=== PATIENT | female | born 1950 | race Native Hawaiian/Other Pacific Islander ===

== ENCOUNTER 2019-12-06 00:23 | Inpatient (IN) | payer OTHER, MEDICAID ==
[~2019-12-06] VITALS: Ht 154.9 cm; Wt 67.5 kg
[2019-12-06 03:05] LABS: Hemoglobin 14.5 g/dL (12.2-16.2)
[2019-12-06 03:07] LABS: Hematocrit 41.5 % (36.0-46.0); Mean Corpuscular Hemoglobin 31.6 pg (28.0-32.0); Mean Corpuscular Volume 90.3 fL (80.0-100.0); Platelet Count (auto) 447 10^3/uL (140-450); Red Blood Cells 4.59 10^6/uL (4.0-5.20); Red Cell Distribution Width 13.4 % (11.8-14.3); White Blood Cell 16.1 10^3/uL (4.4-10.8)
[2019-12-06 03:22] LABS: Albumin 3.2 g/dL (3.4-5.0); Basophils % (manual) 0 (0.0-2.0); Blast Cells 0; Calcium 8.7 mg/dL (8.5-10.1); Eosinophils % (manual) 0 (0-7); Metamyelocytes % 0; Myelocytes % 0; Promyelocytes % 0; Reactive Lymphocytes 0
[2019-12-06 03:28] LABS: Total Protein 8.4 g/dL (6.4-8.2)
[2019-12-06 03:37] LABS: Potassium 2.9 mmol/L (3.5-5.1)
[2019-12-06 03:46] LABS: Partial Thromboplastin Time 25.6 sec (23.0-31.2)
[2019-12-06 04:17] LABS: Band Neutrophils % (manual) 1; Lymphocytes % (manual) 7 (10.0-50.0); Monocytes % (manual) 3 (0-12)
[2019-12-06] MEDS ORDERED: DOXYCYCLINE 100MG/250ML 250 ML IV ONE (05:45)
[2019-12-06] MEDS ORDERED: DexAMETHasone SOD PHOS 10MG/1ML VIAL INJ IV ONE (05:45)
[2019-12-06] MEDS ORDERED: SODIUM CHLORIDE 0.9% 1,000 ML IV ONE (06:00)
[2019-12-06] MEDS ORDERED: IOHEXOL 350 MG/ML 100ML IJ ONE (06:08)
[2019-12-06] MEDS ORDERED: MORPHINE SULFATE 4 MG/ML SYR/VIAL IV PRN (06:30)
[2019-12-06] MEDS ORDERED: NITROGLYCERIN 0.4 MG SL TAB SL PRN (06:30)
[2019-12-06] MEDS ORDERED: MORPHINE SULF INJ 2 MG/ML SYRINGE 1ML IV PRN (06:30)
[2019-12-06] MEDS ORDERED: METOPROLOL TARTRATE 1MG/1ML-5ML VIAL IV PRN (06:30)
[2019-12-06] MEDS ORDERED: DEXTROSE (50%) 50ML SYRG IV PRN (06:30)
[2019-12-06] MEDS ORDERED: ACETAMINOPHEN 500 MG TAB PO PRN (06:30)
[2019-12-06] MEDS ORDERED: ONDANSETRON HCL 4 MG/2 ML VIAL IV PRN (06:30)
[2019-12-06] MEDS ORDERED: POTASSIUM EFFERVESENT TAB 25 MEQ PO ONE (06:45)
[2019-12-06 06:54] VITALS: BP 131/99
[2019-12-06] MEDS: SODIUM CHLORIDE 0.9% 1,000 ML IV SCH ×2 (07:08→20:47)
[2019-12-06] MEDS ORDERED: ACCU-CHEK COMFORT CURVE STRIP VI SCH (08:00)
[2019-12-06] MEDS ORDERED: InsuLIN REG 1unit/0.01ml Soln (100units/ml) SC SCH (08:00)
[2019-12-06 08:31] LABS: Urine Bacteria NONE SEEN /hpf (None Seen); Urine Blood Negative /uL (Negative); Urine Specific Gravity 1.014 (1.001-1.035); Urine WBC 41 /hpf (0 - 5)
[2019-12-06] MEDS: DOCUSATE SOD 100 MG CAP PO SCH (10:30)
[2019-12-06] MEDS: ASCORBIC ACID 1,000 MG TAB PO SCH (10:36)
[2019-12-06] MEDS: DOXYCYCLINE 100 MG TAB/CAP PO SCH ×2 (10:36→21:53)
[2019-12-06] MEDS: ASPirin 81 mg TAB PO SCH (10:36)
[2019-12-06] MEDS: LISINOPRIL 10 MG TAB PO SCH (10:37)
[2019-12-06] MEDS: CLOPIDOGREL BISULFATE 75 MG TAB PO SCH (10:37)
[2019-12-06] MEDS: ZINC SULFATE 220mg CAP or TAB PO SCH (10:37)
[2019-12-06] MEDS: CARVEDILOL 3.125 MG TAB PO SCH ×2 (10:37→21:53)
[2019-12-06] MEDS: ENOXAPARIN SOD 80 MG/0.8ML SYRINGE SC SCH ×2 (10:38→21:54)
[2019-12-06] MEDS ORDERED: POTASSIUM CHL 20MEQ/100ML 100 ML IV ONE (11:15)
--- NOTE | 2019-12-06 12:00 | NUR ---
Telemetry admit from ER RONNIBRAYDEN admitted to Telemetry unit no SBAR received. Patient oriented to Ladi Wise RN primary RN, unit, room, bed, and unit policies regarding patient care and visiting hours. Patient now on continuous telemetry monitoring, tele box # 7 and telemetry reading on arrival to unit is Sinus Rhythm 80 bpm. Patient placed on bedside oxygen, weighed by bedscale and encouraged to call if they need something. All questions and concerns addressed, patient verbalized understanding.
[2019-12-06] MEDS: ALBUTEROL SULF HFA 90MCG INH 200DOSE IN SCH ×2 (14:23→22:35)
[2019-12-06 16:47] VITALS: BP 117/70
[2019-12-06] MEDS: ACCU-CHEK COMFORT CURVE STRIP VI SCH ×2 (17:00→21:54)
--- NOTE | 2019-12-06 18:53 | NUR ---
CLOSING SHIFT NOTE PATIENT HAS NO S/S OF DISTRESS/SOB OR PAIN AT THIS TIME. WILL ENDORSE CARE TO AUTOMATIC NAILING MACHINE FEEDER RN.
--- NOTE | 2019-12-06 19:10 | NUR ---
Opening Shift Note Assumed care of patient. Patient is awake and alert, oriented X 1. No S/S of respiratory distress/SOB or pain noted and/or reported. Bed in lowest locked position, side rails X 3 up, call light within reach, bed alarm ON. Instructed on POC and to call for assistance PRN. Will continue to monitor for changes Q1hr and PRN.
[2019-12-06 20:00] VITALS: BP 137/74
[2019-12-06] MEDS: InsuLIN REG 1unit/0.01ml Soln (100units/ml) SC SCH ×2 (20:46→21:54)
[2019-12-06 21:42] VITALS: BP 137/74
[2019-12-06] MEDS ORDERED: ATORVASTATIN 20 MG TAB PO SCH (22:00)
[2019-12-07] VITALS (7 sets, daily range): BP systolic 99–154; BP diastolic 54–95
[2019-12-07 05:28] LABS: Basophils # (auto) 0 10 ^3/uL (0-0.2); Basophils % (auto) 0.1 % (0.0-2.0); Eosinophils # (auto) 0 10 ^3/uL (0-0.8); Hematocrit 36.7 % (36.0-46.0); Hemoglobin 12.2 g/dL (12.2-16.2); Lymphocytes # (auto) 1.2 10 ^3/uL (0.4-5.4); Lymphocytes % (auto) 8.6 % (10.0-50.0); Mean Corpuscular Hemoglobin 30.6 pg (28.0-32.0); Mean Corpuscular Hgb Conc. 33.2 g/dL (32.0-36.0); Mean Corpuscular Volume 92.1 fL (80.0-100.0); Monocytes # (auto) 0.8 10 ^3/uL (0-1.3); Monocytes % (auto) 5.3 % (0.0-12.0); Neutrophils # (auto) 12.4 10 ^3/uL (1.6-8.6); Nucleated Red Blood Cells % 0.1 %; Platelet Count (auto) 429 10^3/uL (140-450); Red Blood Cells 3.98 10^6/uL (4.0-5.20); Red Cell Distribution Width 13.2 % (11.8-14.3); White Blood Cell 14.4 10^3/uL (4.4-10.8)
[2019-12-07 05:47] LABS: Albumin 2.7 g/dL (3.4-5.0); Calcium 8.6 mg/dL (8.5-10.1); Magnesium 2.3 mg/dL (1.6-2.6); Potassium 4.1 mmol/L (3.5-5.1)
[2019-12-07 05:57] LABS: BUN/Creatinine Ratio 15.8; Bilirubin, Total 0.5 mg/dL (0.2-1.0); CRP High Sensitivity 4.49 mg/dL (< 0.3); Total Protein 7.4 g/dL (6.4-8.2)
[2019-12-07] MEDS: InsuLIN REG 1unit/0.01ml Soln (100units/ml) SC SCH ×3 (07:00→17:00)
--- NOTE | 2019-12-07 07:00 | NUR ---
OPENING SHIFT NOTE ASSUMED CARE OF PATIENT FROM MAGAZINE EDITOR RN SAHIL. PATIENT IS AWAKE, ALERT AND ORIENTED X1 (PERSON). REORIENTED PATIENT TO PLACE, TIME, AND SITUATION. PATIENT UNABLE TO COMPREHEND POC. SPOKE WITH DAUGHTER ALICE AND UPDATED HER ON POC, SHE VERBALIZED UNDERSTANDING. BED IS IN LOWEST POSITION WITH SIDE RAILS RAISED X2, BED WHEELS LOCKED, BED ALARM ON AND CALL LIGHT IS WITHIN REACH. WILL CONTINUE TO MONITOR.
[2019-12-07] MEDS: ALBUTEROL SULF HFA 90MCG INH 200DOSE IN SCH ×2 (07:08→14:49)
[2019-12-07] MEDS: ACCU-CHEK COMFORT CURVE STRIP VI SCH ×3 (07:18→17:08)
[2019-12-07] MEDS ORDERED: TICA90TA PO (07:42)
[2019-12-07] MEDS ORDERED: ATOR10TA52 PO (07:42)
[2019-12-07] MEDS ORDERED: cefTRIAXone 1GM/50ML D5W 50 ML IV SCH (09:00)
[2019-12-07] MEDS: SODIUM CHLORIDE 0.9% 1,000 ML IV SCH (09:07)
[2019-12-07] MEDS: ENOXAPARIN SOD 80 MG/0.8ML SYRINGE SC SCH (09:28)
[2019-12-07] MEDS: LISINOPRIL 10 MG TAB PO SCH (09:28)
[2019-12-07] MEDS: DOXYCYCLINE 100 MG TAB/CAP PO SCH (09:28)
[2019-12-07] MEDS: DOCUSATE SOD 100 MG CAP PO SCH (09:29)
[2019-12-07] MEDS: ASPirin 81 mg TAB PO SCH (09:29)
[2019-12-07] MEDS: CARVEDILOL 3.125 MG TAB PO SCH (09:29)
[2019-12-07] MEDS: ZINC SULFATE 220mg CAP or TAB PO SCH (09:29)
[2019-12-07] MEDS: CLOPIDOGREL BISULFATE 75 MG TAB PO SCH (09:30)
[2019-12-07] MEDS: ASCORBIC ACID 1,000 MG TAB PO SCH (09:30)
--- NOTE | 2019-12-07 11:08 | NUR ---
MD MEDELLIN AT BEDSIDE UPDATED MD ON PATIENT'S STATUS, MD IS AWARE AND ORDERED PATIENT TO BE DISCHARGED HOME WITH 2L NC. INFORMED DIRECTOR [employer] WILLETTE. KING SPOKE WITH PATIENT'S DAUGHTER.
--- NOTE | 2019-12-07 13:54 | NUR ---
RECEIVED CALL FROM FANY AND SHE IS WAITING FOR OXYGEN COMPANY TO GIVE HER ETA
--- NOTE | 2019-12-07 17:38 | NUR ---
[id number] 12/07/19 - Contacted [facility] at [phone] regarding order for home oxygen, Spoke with case work aide who inform me to send request to [employer]. Faxed to [facility] at [phone] and [employer] at [phone] face sheet, order for home oxygen, H/P. I contacted [employer] due to 2 failed fax responses given secondary fax number [phone]. Provided marketing production coordinator with patient information, computer repair technician will call unit with delivery time for portable oxygen to bedside.
--- NOTE | 2019-12-07 18:54 | NUR ---
CLOSING SHIFT NOTE PATIENT HAS NO S/S OF DISTRESS/SOB OR PAIN AT THIS TIME. WILL ENDORSE CARE TO IT ADMIN RN.
--- NOTE | 2019-12-07 19:19 | NUR ---
Opening Shift Note Assumed care of patient. Patient is awake and alert, oriented to self. No S/S of respiratory distress or pain noted and/or reported at this time. Respirations are regular and non-labored. Pt is calm and cooperative. On 1.5 LPM O2 via NC. Bed in lowest locked position, side rails X 2 up, call light within reach. Bed commode is at bed side. Instructed on POC and to call for assistance as needed. Will continue to monitor for changes Q1hr and PRN.
--- NOTE | 2019-12-07 21:26 | NUR ---
Discharged Discharge instructions given as ordered. Encourage to follow up with PCP as instructed. All questions and concerns addressed. IV removed with catheter intact, pressure dressing applied. Telemetry unit returned to ICU. Patient taken to vehicle via wheelchair accompanied by staff. No distress noted at time of departure. HR 71 bpm, RR 18 bpm, T 98.9 F, BP 130/67 mmHg.
== END 2019-12-07 21:25 | disposition home or self-care (01) | DRG 871 ==
LOC: ER 00:24 → TELE 00:25 → TELE-EAST 12:11
PROVIDERS: ADMIT Hospitalist; ATTEND Hospitalist
DX: A41.89 Other specified sepsis (principal); U07.1 COVID-19; J12.89 Other viral pneumonia; I21.A1 Myocardial infarction type 2; E87.6 Hypokalemia; I51.7 Cardiomegaly; E11.65 Type 2 diabetes mellitus with hyperglycemia; R62.50 Unspecified lack of expected normal physiological development in childhood; F41.9 Anxiety disorder, unspecified; J45.909 Unspecified asthma, uncomplicated; Z82.49 Family history of ischemic heart disease and other diseases of the circulatory system; Z83.3 Family history of diabetes mellitus; Z87.01 Personal history of pneumonia (recurrent)
CPT/HCPCS: 36415; 71045; 71275; 80053; 81001; 82728; 82962; 83615; 83735; 83880; 84484; 85007; 85025; 85027; 85379; 85610; 85730; 86141; 87426; 93005; 94640; G0378; J0696; J1100; J1815; J3480; J3490